=== PATIENT | male | born 1985 | race Caucasian/White ===

== ENCOUNTER → 2017-06-20 | Outpatient (CLI) | payer BC | END | disposition home or self-care (01) | LOC: C.LAB 08:10 | PROVIDERS: ATTEND Acupuncturist | DX: E78.2 Mixed hyperlipidemia (principal); E03.8 Other specified hypothyroidism ==

== ENCOUNTER → 2017-07-12 | Outpatient (CLI) | payer BC | END | disposition home or self-care (01) | LOC: C.LAB 08:50 | PROVIDERS: ATTEND Obstetrics & Gynecology | DX: Z31.41 Encounter for fertility testing (principal) ==

== ENCOUNTER → 2017-12-16 | Outpatient (CLI) | payer BC | END | disposition home or self-care (01) | LOC: C.LAB 09:34 | PROVIDERS: ATTEND Acupuncturist | DX: E03.8 Other specified hypothyroidism (principal); E78.2 Mixed hyperlipidemia; Z00.00 Encounter for general adult medical examination without abnormal findings ==